=== PATIENT | male | born 1995 | race Two or more races ===

== ENCOUNTER 2021-08-23 14:03 | Emergency (ER) | payer BC, OTHER ==
[~2021-08-23] VITALS: Ht 185.4 cm; Wt 115.2 kg
[2021-08-23 14:18] VITALS: BP 138/89
--- NOTE | 2021-08-23 14:21 | NUR ---
BIBS FOR C/O COUGH & CONGESTION X 2 WEEKS. IN ROOM AIR AND DENIES SOB. RESPIRATION REGULAR AND UNLABORED. OXYGEN SATURATION IN ROOM AIR IS AT 98%. WILL CONTINUE TO MONITOR THE PATIENT.
--- NOTE | 2021-08-23 14:43 | NUR ---
AWAITING FOR ER PROVIDER TO SEE THE PATIENT AT BEDSIDE
[2021-08-23] MEDS ORDERED: BENZ-13 PO (15:10)
[2021-08-23] MEDS ORDERED: GUAI1TBM19 PO (15:10)
[2021-08-23] MEDS ORDERED: PSEU120T83 PO (15:10)
[2021-08-23] MEDS ORDERED: GUAIFENESIN/D-METHORPHAN HB 5 ML UDC ONE (15:12)
[2021-08-23] MEDS ORDERED: GUAIFENESIN/D-METHORPHAN HB 5 ML UDC PO ONE (15:30)
== END 2021-08-23 15:25 | disposition home or self-care (01) ==
LOC: ER 14:16
DX: R05.9 Cough, unspecified (principal); R09.81 Nasal congestion

== ENCOUNTER 2022-04-11 10:49 | Outpatient (CLI) | payer BC, OTHER ==
[~2022-04-11 10:49] MED LIST: BENZ-13 PO; GUAI1TBM19 PO; PSEU120T83 PO
[2022-04-11 11:32] LABS: BASOPHILS % (AUTO) 0.9 % (0.0-2.0); EOSINOPHILS % (AUTO) 7.5 % (0.0-6.0); HEMATOCRIT 42 % (39-51); HEMOGLOBIN 14.6 g/dL (13.5-17.5); LYMPHOCYTES # (AUTO) 1.9 K/uL (0.8-4.8); LYMPHOCYTES % (AUTO) 37.5 % (20.0-44.0); MEAN CORPUSCULAR HGB CONC 34 g/dl (31.0-36.0); MEAN CORPUSCULAR VOLUME 89 fL (80-96); MONOCYTES # (AUTO) 0.5 K/uL (0.1-1.30); MONOCYTES % (AUTO) 9.2 % (2.0-12.0); NEUTROPHILS # (AUTO) 2.2 K/uL (1.8-8.9); NEUTROPHILS % (AUTO) 44.9 % (43.0-81.0); PLATELET COUNT (AUTO) 252 K/uL (150-450); RED BLOOD CELL COUNT(AUTO) 4.75 MIL/uL (4.5-6.0); WHITE BLOOD COUNT (AUTO) 4.9 K/uL (4.3-11.0)
[2022-04-11 11:34] LABS: BILIRUBIN,URINE NEGATIVE (NEGATIVE); COLOR,URINE YELLOW (YELLOW); LEUKOCYTE ESTERASE ,URINE NEGATIVE (NEGATIVE); NITRITE, URINE NEGATIVE (NEGATIVE); PH,URINE 6.5 (5.0-8.0); PROTEIN,URINE TRACE mg/dl (NEGATIVE); UGLUCOSE NEGATIVE (NEGATIVE); UROBILINOGEN,URINE 0.2 EU/dL (0.2)
[2022-04-11 11:49] LABS: ALBUMIN 3.9 g/dL (3.4-5.0); BILIRUBIN,TOTAL 0.7 mg/dL (0.2-1.0); CALCIUM, SERUM 8.6 mg/dL (8.5-10.1); CREATININE 1.1 mg/dL (0.6-1.3); TOTAL PROTEIN, SERUM 7.5 g/dL (6.4-8.2)
[2022-04-11 13:35] LABS: BACTERIA,URINE None seen /HPF (None Seen); SQUAMOUS EPITHELIAL CELL,UR Few /HPF (None Seen); WBC,URINE 0-2 /HPF (0-3)
== END 2022-04-11 23:59 | disposition home or self-care (01) ==
LOC: US 10:49
PROVIDERS: ATTEND Family Medicine
DX: R31.29 Other microscopic hematuria (principal)
CPT/HCPCS: 36415; 76770-TC; 80053-TC; 81001; 85025-TC; 87086-TC